=== PATIENT | male | born 1960 | race Caucasian/White ===

== ENCOUNTER 2017-08-26 17:45 | Inpatient (IN) ==
--- NOTE | 2017-08-26 17:53 | Emergency Department Note ---
Disposition Clinical Impression: Right kidney mass, Bladder wall thickening Acute renal failure Qualifiers: Acute renal failure type: unspecified Qualified Code(s): N17.9 - Acute kidney failure, unspecified Disposition: Admitted As Inpatient Condition: Fair Forms: ED Satisfaction Letter, Work/School Release Time of Disposition: 18:02 Abdominal Pain HPI - General Chief Complaint: ED Abdominal Pain Stated Complaint: ABD PAIN Time Seen by Provider: 08/26/17 17:50 Source: patient, EMS Mode of arrival: EMS Limitations: no limitations Nursing Notes Reviewed: Yes Vital Signs Reviewed: Yes - History of Present Illness HPI Narrative: 57-year-old with a history of colon cancer resected back in 2009 with a takedown of colostomy after that who comes in after having nausea for 3 days not able to eat or drink any solid foods for the last 4 days. Patient was dizzy when he stood up went to the [facility] had labs done and was found to be in acute renal failure with a creatinine of 4.[address] scan done that shows bladder wall thickening rule out transitional cell carcinoma of the bladder and a mass inferior pole of the right kidney there is a 17 mm x 16 mm x 8 mm exophytic mass. This measures been 70 and 80 Hounsfield units and could be a cystic or solid there is nonspecific bladder wall thickening. Pt Subjective Complaint: abdominal pain Onset (ago): day(s) (3) Consistency: constant Location: diffuse Pain Severity: mild, moderate Radiation: none Migration to: no migration Improves with: nothing Worsens with: nothing Associated symptoms: Reports: nausea, vomiting Treatments prior to arrival: none - Related Data Allergies Allergy/AdvReac Type Severity Reaction Status Date / Time No Known Allergies Allergy Verified 08/26/17 17:52 All systems ED: reviewed and negative except as stated. Constitutional: Denies: fever, chills, weakness, weight change Eyes: Denies: eye pain, eye discharge, vision change ENT ED: Denies: ear pain, throat pain, dental pain, hearing loss, epistaxis, congestion, dysphagia Cardiovascular: Denies: chest pain, palpitations, dyspnea on exertion, edema, syncope Respiratory: Denies: cough, dyspnea, wheezes, hemoptysis, stridor Gastrointestinal: Reports: abdominal pain, nausea, vomiting. Denies: diarrhea, constipation, hematemesis, melena, hematochezia Genitourinary: Denies: urgency, dysuria, frequency, hematuria Musculoskeletal: Denies: back pain, neck pain, arthralgia, myalgia Integumentary: Denies: rash, abrasion, lesions Neurological: Denies: headache, weakness, numbness, paresthesias, confusion, abnormal gait, vertigo Psychiatric: Denies: anxiety, depression, suicidal thoughts, homicidal thoughts , auditory hallucinations, visual hallucinations Endocrine: Denies: fatigue Hematological/Lymphatic: Denies: easy bleeding, easy bruising Allergic/Immunologic: Denies: facial swelling, urticaria Physical Exam - General Limitations: no limitations General appearance: alert, in no apparent distress - Head Head exam: atraumatic, normocephalic, normal inspection - Eye Eye exam: Present: normal appearance, PERRL, EOMI - ENT ENT exam: normal exam, normal oropharynx, mucous membranes moist - Neck Neck exam: Present: normal inspection, full ROM, trachea midline - Chest Chest inspection: Present: normal inspection, symmetric chest wall rise - Respiratory Respiratory exam: Present: normal lung sounds bilaterally - Cardiovascular Cardiovascular exam: Present: regular rate, normal rhythm, normal heart sounds - Abdominal Exam Abdominal exam: Present: soft, tenderness. Absent: guarding, rebound Abdominal tenderness: Present: diffuse, mild - Extremities Exam Extremities exam: Present: normal inspection, full ROM. Absent: tenderness, pedal edema - Expanded Lower Extremity Exam Neurovascular/Tendon exam: Present: normal capillary refill Gait: observed and normal - Back Exam Back exam: Present: normal inspection, full ROM. Absent: tenderness - Neurological Exam Neurological exam: Present: alert, oriented X3 - Psychiatric Psychiatric exam: Present: normal affect, normal mood - Skin Skin exam: Present: warm, dry, intact, normal color Course - Reevaluation(s) Reevaluation #1: 57-year-old [facility] patient sent here because of unable leave last 3 days with nausea and dry heaves he has had some dizziness when he stands up. Laboratory from the [facility] white count was 14.6 H&H of 16 6 and 48.4 platelets were 174 AST was 17 a LT 39 total bilirubin was 1 was 8.6, AST of 17 LT 39 total bilirubin 1 calcium 8.6 sodium 134 potassium 4.6 chloride 100 carbon dioxide 22 glucose 193 by mouth 17 creatinine 4.97 lipase 280 amylase 35. Patient will be admitted for IV fluids and also evaluation of kidney mass. Time: 17:54 - Consultations Consultation #1: Discussed with Dr. Sofia, admit. Time: 18:10 Vital Signs Temperature 97.9 F 08/26/17 17:47 Pulse Rate 106 08/26/17 17:47 Respiratory Rate 16 08/26/17 17:47 Blood Pressure 111/69 08/26/17 17:47 O2 Sat by Pulse Oximetry 98 08/26/17 17:47 Temperature 97.9 F 08/26/17 17:47 Pulse Rate 106 08/26/17 17:47 Respiratory Rate 16 08/26/17 17:47 Blood Pressure 111/69 08/26/17 17:47 O2 Sat by Pulse Oximetry 98 08/26/17 17:47 Oxygen Delivery Oxygen Delivery Room Air
[2017-08-26] MEDS: 0.9 % Sodium Chloride 1,000 ML IVC SCH ×2 (18:22→23:31)
--- NOTE | 2017-08-26 20:56 | Internal Med History&Physical ---
Date of Encounter: 08/26/17 Time of Encounter: 18:00 Assessment and Plan (1) Acute renal failure Current visit: Yes Status: Acute -[facility] 4.87 with a GFR 12. -Will continue IV fluids and consult nephrology for further recommendations ( plate keeper to be contacted in the morning) Qualifiers: Acute renal failure type: unspecified Qualified Code(s): N17.9 - Acute kidney failure, unspecified (2) Bladder wall thickening Current visit: Yes Status: Acute -CT of the abdomen was done which showed bladder wall thickening -Concerns for transitional cell carcinoma of the bladder -Will consult urology for further recommendations (urologist to be contacted in the morning) (3) Right kidney mass Current visit: Yes Status: Acute -CT of the abdomen was done which showed bladder wall thickening and a mass inferior pole of right kidney measuring 17 mm x 16 mm x 8 mm. -Urology consult as above appreciate recommendations (4) DVT prophylaxis Current visit: Yes Status: Acute Lovenox subcutaneous Internal Medicine - H&P: HPI Chief complaint: Nausea/vomiting Admitted From: Home Plans for Post Hospital Care: Home History of present illness: Patient is a 57-year-old male who presents from the [facility] due to acute renal failure. Patient reports of nausea/vomiting and dizziness with standing in addition to decreased by mouth for the last several days. Patient denies any abdominal pain , urinary symptoms or hematuria. Patient decided to go to the [facility] for further evaluation. At the [facility] patient was found to have a creatinine of 4.87 with a GFR 12. CT of the abdomen was done which showed bladder wall thickening and a mass inferior pole of right kidney measuring 17 mm x 16 mm x 8 mm. Patient was transferred to [facility] for further management and workup. Past Med Surg Social Fam HX - Past Medical History Medical history: cancer, diabetes, hypertension, other Psychiatric history: depression - Past Surgical History Surgical History: non-contributory - Social History Smoking Status: Former smoker Smokeless Tobacco Status: No Alcohol use: none Drug use: none - Family History Father Living Status: Hx Family Cancer: Yes Internal Medicine - H&P: Meds 3 Allergy/AdvReac Type Severity Reaction Status Date / Time No Known Allergies Allergy Verified 08/26/17 17:52 All Systems PM: A 10-system review of systems was performed and is negative for pertinent findings except as documented above in the HPI. - Constitutional Vitals: Temp Pulse Resp BP Pulse Ox 97.9 F 87 16 106/68 97 08/26/17 17:47 08/26/17 19:20 08/26/17 19:20 08/26/17 19:20 08/26/17 19:20 General appearance: Present: A&O X 3 - Eye Eye exam: Present: normal appearance - ENT ENT exam: Present: mucous membranes moist - Respiratory Respiratory exam: Present: CTAB. Absent: accessory muscle use, rales, rhonchi, wheezes - Cardiovascular Cardiovascular exam: Present: RRR, +S1, +S2. Absent: diastolic murmur, gallop, rubs, systolic murmur - GI/Abdominal GI/Abdominal exam: Present: normal bowel sounds, soft, no peritoneal signs. Absent: distended, tenderness - Extremities Exam Extremities exam: Absent: pedal edema - Neurological Exam Neurological exam: Present: oriented X3 - Psychiatric Psychiatric exam: Present: normal mood - Skin Skin exam: Present: normal color
[2017-08-26] MEDS ORDERED: Naloxone 0.4 MG/ML INJ IVP PRN (21:04)
[2017-08-27 05:46] LABS: Basophils % 0.2 %; Eosinophils # 0.1 K/mcL (0.0-0.6); Eosinophils % 0.8 %; Hematocrit 37.4 % (37.5-50.1); Immature Granulocytes % 0.8 % (0-4); Lymphocytes # 2.6 K/mcL (0.6-4.6); Lymphocytes % 28.2 %; Mean Corpuscular HGB Conc 34.8 g/dL (31.6-35.5); Mean Corpuscular Hemoglobin 29.5 pg (28.0-33.3); Monocytes # 0.9 K/mcL (0.0-1.3); Monocytes % 9.8 %; Neutrophils # 5.6 K/mcL (1.6-8.9); Platelet Count 104 K/mcL (140-400); Red Cell Distribution Width 16.9 % (11.5-14.5); Segmented Neutrophils % 60.2 %
[2017-08-27 06:49] LABS: Calcium 7.4 mg/dL (8.6-10.3)
[2017-08-27] MEDS: 0.9 % Sodium Chloride 1,000 ML IVC SCH ×2 (08:00→17:08)
--- NOTE | 2017-08-27 09:20 | Urology - Consult Note ---
Date of Encounter: 08/27/17 Time of Encounter: 09:19 - Assessment and Plan (1) Acute renal failure Current Visit: Yes Status: Acute Assessment and plan: does not appear to be obstructive bc the bladder is not distended and there is no hydronephrosis. likely prerenal or intrinsic RI Qualifiers: Acute renal failure type: unspecified Qualified Code(s): N17.9 - Acute kidney failure, unspecified (2) Bladder wall thickening Current Visit: Yes Status: Acute Assessment and plan: I reviewed the CT images. the bladder wall thickening is fairly symmetric, nonspecific and is more consistant with outlet obstruction or bladder dysfunction rather than urothelial malignancy. may require outpatient office cystoscopy in the future but does not need to be done urgently. (3) Right kidney mass Current Visit: Yes Status: Acute Assessment and plan: I reviewed the CT scan and the patient has 3 renal lesions. 2 cm hyperdense lesion in the right mid pole. large lower pole renal cyst with some calcification. more simple appearing cyst in the left kidney. unable to determine if renal cell carcinoma without IV contrast imaging. the lesion mentioned in the right kidney may be a hyperdense cyst without malignancy. Again repeat imaging with contrast can be performed in the future as an outpatient if/when his renal function improves. Urology CN:HPI Consult date: 08/27/17 History of present illness: Patient is a 57-year-old male who presents from the [facility] due to acute renal failure. Patient reports of nausea/vomiting and dizziness with standing in addition to decreased by mouth for the last several days. Patient denies any abdominal pain , urinary symptoms or gross hematuria. Patient decided to go to the [facility] for further evaluation. At the [facility] patient was found to have a creatinine of 4.87 with a GFR 12. CT of the abdomen/pelvis with bladder wall thickening and a mass inferior pole of right kidney measuring 17 mm x 16 mm x 8 mm. since admission GFR has improved with hydration to 27. Past Med Surg Social Fam HX - Past Medical History Medical history: cancer, diabetes, hypertension, other Psychiatric history: depression - Past Surgical History Surgical History: non-contributory - Social History Smoking Status: Former smoker Smokeless Tobacco Status: No Alcohol use: none Drug use: none - Family History Father Living Status: Hx Family Cancer: Yes Medications and Allergies Albuterol Sulfate [Albuterol Inhaler] 2 puff IH QID PRN 08/26/17 [History] Cholecalciferol (D-3) [Vitamin D] 2,000 unit PO DAILY 08/26/17 [History] Folic Acid [Folic Acid] 1 mg PO DAILY 08/26/17 [History] Gabapentin [Neurontin] 300 mg PO TID 08/26/17 [History] Lisinopril [Zestril] 10 mg PO DAILY 08/26/17 [History] Mirtazapine [Remeron] 30 mg PO HS 08/26/17 [History] Omeprazole [PriLOSEC] 40 mg PO DAILY 08/26/17 [History] Ondansetron HCl [Zofran] 4 mg PO Q4-6H PRN 08/26/17 [History] Sildenafil Citrate [Viagra] 100 mg PO AD PRN 08/26/17 [History] Trospium Chloride 20 mg PO DAILY 08/26/17 [History] metFORMIN [Glucophage] 500 mg PO BIDWM 08/26/17 [History] predniSONE [PredniSONE] 20 mg PO DAILY 08/26/17 [History] 3 Allergy/AdvReac Type Severity Reaction Status Date / Time No Known Allergies Allergy Verified 08/26/17 17:52 Review of Systems - Constitutional fatigue, no fever(s), no malaise - EENT Nose, mouth and throat: dizziness - Cardiovascular no chest pain - Respiratory no dyspnea - Gastrointestinal nausea, vomiting - Genitourinary no difficulty urinating, no hematuria - Musculoskeletal no back pain - Integumentary no erythema - Neurological no confusion - Psychiatric no anxiety - Hematologic/Lymphatic no easy bleeding Exam Initial Vital Signs Temp Pulse Resp BP Pulse Ox 97.9 F 106 16 111/69 98 08/26/17 17:47 08/26/17 17:47 08/26/17 17:47 08/26/17 17:47 08/26/17 17:47 - General physical appearance Present: well developed, no distress - Eyes Present: PERRL, conjunctiva is clear - ENT Present: normal nares, no hearing loss - Neck Present: no masses, no lymphadenopathy - Respiratory Present: normal respiratory effort - Cardiovascular Cardiovascular exam IM: RRR - Abdomen Abdomen: Present: soft. Absent: masses, suprapubic tenderness - Integumentary Present: no rash, no abnormal pigmentation - Neurologic Present: normal coordination. Absent: disoriented, confused Urology Results - Labs 08/27/17 04:55 08/27/17 04:55 Abnormal lab results Hct 37.4 % (37.5-50.1) L 08/27/17 04:55 RDW 16.9 % (11.5-14.5) H 08/27/17 04:55 Plt Count 104 K/mcL (140-400) L 08/27/17 04:55 Sodium 132 mEq/L (136-145) L 08/27/17 04:55 Carbon Dioxide 18 mEq/L (23-29) L 08/27/17 04:55 BUN 65 mg/dL (6-20) H 08/27/17 04:55 Creatinine 2.52 mg/dL (0.70-1.30) H 08/27/17 04:55 Est GFR ( Amer) 32 (> 60) L 08/27/17 04:55 Est GFR (Non-Af Amer) 27 (> 60) L 08/27/17 04:55 Glucose 118 mg/dL (70-105) H 08/27/17 04:55 Calcium 7.4 mg/dL (8.6-10.3) L 08/27/17 04:55 Diabetes panel 08/27/17 Range/Units 04:55 Sodium 132 L (136-145) mEq/L Potassium 4.0 (3.5-5.1) mEq/L Chloride 107 (98-107) mEq/L Carbon Dioxide 18 L (23-29) mEq/L BUN 65 H (6-20) mg/dL Creatinine 2.52 H (0.70-1.30) mg/dL Glucose 118 H (70-105) mg/dL Calcium 7.4 L (8.6-10.3) mg/dL Calcium panel 08/27/17 Range/Units 04:55 Calcium 7.4 L (8.6-10.3) mg/dL Pituitary panel 08/27/17 Range/Units 04:55 Sodium 132 L (136-145) mEq/L Potassium 4.0 (3.5-5.1) mEq/L Chloride 107 (98-107) mEq/L Carbon Dioxide 18 L (23-29) mEq/L BUN 65 H (6-20) mg/dL Creatinine 2.52 H (0.70-1.30) mg/dL Glucose 118 H (70-105) mg/dL Calcium 7.4 L (8.6-10.3) mg/dL Adrenal panel 08/27/17 Range/Units 04:55 Sodium 132 L (136-145) mEq/L Potassium 4.0 (3.5-5.1) mEq/L Chloride 107 (98-107) mEq/L Carbon Dioxide 18 L (23-29) mEq/L BUN 65 H (6-20) mg/dL Creatinine 2.52 H (0.70-1.30) mg/dL Glucose 118 H (70-105) mg/dL Calcium 7.4 L (8.6-10.3) mg/dL All other labs normal. Consult Discharge Plan - Plan [facility]errals: [facility] [Primary Care Provider] -
--- NOTE | 2017-08-27 12:51 | Internal Med Progress Note ---
Date of Encounter: 08/27/17 Time of Encounter: 12:49 - Assessment and plan (1) Acute renal failure Current Visit: Yes Status: Acute Assessment and plan: This seems to be improving with IV fluids. Likely prerenal. Patient reports decreased oral intake for the last week or so. Also has chronic diarrhea. We will obtain records from [facility]. Continue IV fluid. Check a UA. Qualifiers: Acute renal failure type: unspecified Qualified Code(s): N17.9 - Acute kidney failure, unspecified (2) Diarrhea Current Visit: Yes Status: Acute Assessment and plan: This is chronic diarrhea. He says this changing color to green now. He was recently hospitalized and given IV antibiotics for sepsis and ICU of [facility]. We will check C. difficile. Qualifiers: Diarrhea type: unspecified type Qualified Code(s): R19.7 - Diarrhea, unspecified (3) Right kidney mass Current Visit: Yes Status: Acute Assessment and plan: Seen by urology with plans to repeat a CT after kidney function is better with IV contrast. (4) Bladder wall thickening Current Visit: Yes Status: Acute (5) Hypertension Current Visit: Yes Status: Acute Assessment and plan: Blood pressures on the lower side. Hold antihypertensives. Qualifiers: Hypertension type: essential hypertension Qualified Code(s): I10 - Essential (primary) hypertension (6) Hemolytic anemia Current Visit: Yes Status: Acute Assessment and plan: Patient is on chronic prednisone 20 mg. Qualifiers: Hemolytic anemia type: hereditary hemolytic anemia, unspecified Qualified Code(s): D58.9 - Hereditary hemolytic anemia, unspecified (7) DVT prophylaxis Current Visit: Yes Status: Acute Assessment and plan: SCDs - Subjective Interval history: Patient was seen and examined. No acute events. [facility]. Has no history of kidney disease. The patient was recently hospitalized in the ICU at [facility] according to the family and was treated for sepsis. He is not able to tell me exactly what he was being treated for. He does have symptoms of nausea and has not been having an appetite and has had decreased oral intake for the last week or so. Also has been dealing with loose stools although he does have loose stools that are chronic ever since he had a colectomy after diagnosis of colon cancer. He says the stools have been greenish now compared to her regular brown color. He has been afebrile. - Constitutional Vitals: Temp Pulse Resp BP Pulse Ox 98.7 F 77 16 120/80 96 08/27/17 11:21 08/27/17 11:21 08/27/17 11:21 08/27/17 11:21 08/27/17 11:21 General appearance: Present: A&O X 3 Exam: GEN: NAD CVS: RRR. S1, S2, No m/r/g RESP: CTAB ABD: Soft, NT, ND, +BS EXT: No edema. 2+ DP. No rashes NEURO: Nonfocal Internal Medicine: Result - Labs CBC & Chem 7: 08/27/17 04:55 08/27/17 04:55 Labs: Short CBC 08/27/17 Range/Units 04:55 WBC 9.3 (4.3-11.1) K/mcL Hgb 13.0 (12.9-16.9) g/dL Hct 37.4 L (37.5-50.1) % Plt Count 104 L (140-400) K/mcL Neutrophils # 5.6 (1.6-8.9) K/mcL BMP 08/27/17 04:55 Sodium 132 L Potassium 4.0 Chloride 107 Carbon Dioxide 18 L BUN 65 H Creatinine 2.52 H Glucose 118 H Calcium 7.4 L Consult Discharge Plan - Plan [facility]errals: [facility] [Primary Care Provider] -
[2017-08-27] MEDS: Gabapentin 300 MG CAPSULE PO SCH ×2 (13:49→20:24)
[2017-08-27] MEDS: predniSONE 20 MG TABLET PO SCH (13:49)
--- NOTE | 2017-08-27 13:51 | Nephrology Consult Note ---
Date of Encounter: 08/28/17 Time of Encounter: 14:00 Assessment and Plan (1) Acute renal failure Current Visit: Yes Status: Acute Elevated SCr in the setting of N but no V but decreased po inate with likely orthostatic hypotension Agree with continued volume repletion will check urine studies with UA, sodium, eosinophils and creatinine Will also check CPK and uric acid levels Encourage avoidance of nephroixns if possible No acute indication for ASSISTANT DIRECTOR OF SECURITY at this time Qualifiers: Acute renal failure type: unspecified Qualified Code(s): N17.9 - Acute kidney failure, unspecified (2) Right kidney mass Current Visit: Yes Status: Acute As noted by urology, would need better imaging once renal fxn improves whether MRI or CT with contrast History of Present Illness - Reason for Consult Consult date: 08/27/17 Acute Kidney Injury Requesting physician: Xiang Sofia - History of Present Illness 57 y o male with PMH of DM, HTM [facility] presented for several days of nauseabut no vomiting with resultant dizziness with decreased po intake. SCr was noted at 4.87, GFR 12 improving to 2.52, GFR 27 today with baseline not given. Incidentally, CT without contrast showed right renal lesions along with left simple cysts unclear if malignant along with thickened bladder wall. Urology consulted and following. Denies any NSAIDs use or any new medications. No prior history of renal disease Past Med Surg Social Fam HX - Past Medical History Medical history: cancer, diabetes, hypertension, other Psychiatric history: depression - Past Surgical History Surgical History: non-contributory - Social History Smoking Status: Former smoker Smokeless Tobacco Status: No Alcohol use: none Drug use: none - Family History Father Living Status: Hx Family Cancer: Yes Medications and Allergies Albuterol Sulfate [Albuterol Inhaler] 2 puff IH QID PRN 08/26/17 [History] Cholecalciferol (D-3) [Vitamin D] 2,000 unit PO DAILY 08/26/17 [History] Folic Acid 1 mg PO DAILY 08/26/17 [History] Gabapentin [Neurontin] 300 mg PO TID 08/26/17 [History] Mirtazapine [Remeron] 30 mg PO HS 08/26/17 [History] Omeprazole [PriLOSEC] 40 mg PO DAILY 08/26/17 [History] Ondansetron HCl [Zofran] 4 mg PO Q4-6H PRN 08/26/17 [History] Sildenafil Citrate [Viagra] 100 mg PO AD PRN 08/26/17 [History] Trospium Chloride 20 mg PO DAILY 08/26/17 [History] metFORMIN [Glucophage] 500 mg PO BIDWM 08/26/17 [History] predniSONE [PredniSONE] 20 mg PO DAILY 08/26/17 [History] 3 Allergy/AdvReac Type Severity Reaction Status Date / Time No Known Allergies Allergy Verified 08/26/17 17:52 Review of Systems All Systems: reviewed and no additional remarkable complaints except as stated ( 10 systems reviewed) Exam - Vital Signs Vital signs: Initial Vital Signs Temp Pulse Resp BP Pulse Ox 97.9 F 106 16 111/69 98 08/26/17 17:47 08/26/17 17:47 08/26/17 17:47 08/26/17 17:47 08/26/17 17:47 Vital Signs - Last 8 Hours Temp Pulse Resp BP Pulse Ox 08/27/17 11:21 98.7 F 77 16 120/80 96 08/27/17 07:07 97.7 F 100 18 126/77 98 Intake and Output 08/26/17 08/27/17 08/27/17 23:59 07:59 15:59 Intake Total 0 / 0 1000 / 1000 480 / 480 Balance 0 / 0 1000 / 1000 480 / 480 Intake: IV Fluids 0 / 0 1000 / 1000 0.9 % Sodium Chloride 1,000 ML 0 / 0 1000 / 1000 @ 125 mls/hr IVC .Q8H [facility] Rx#: [id number] Oral 480 / 480 Other: Meal Lunch Percent of Meal Consumed 100% # Voids 1 1 # Bowel Movements 1 # Bowel Movement Diapers 1 Weight 104.2 kg Blood Glucose* 135 132 Patient Weight 08/27/17 23:59 Weight 104.2 kg - General Appearance General appearance: well-developed, well-nourished EENT: ATNC, mucous membranes dry Neck: no JVD, supple Respiratory: clear (ant bilat) Cardiology: no edema, normal S1, normal S2 Gastrointestinal: no tenderness, no guarding Integumentary: warm and dry Neurologic: no focal deficit Musculoskeletal: no deformities Psychiatric: mood/affect appropriate Results - Lab Results 08/28/17 05:18 08/28/17 05:18 Most recent lab results Calcium 7.4 mg/dL (8.6-10.3) L 08/27/17 04:55 Consult Discharge Plan - Plan Additional Instructions: We are holding your lisinopril at discharge. Your blood pressure has been ok without it. Please see your PCP next week to see if you need to go back on it or if you need another blood pressure medication. Follow up with Urology within the next month in regards to the kidney mass and getting a CT scan or MRI with contrast to evaluate the mass better. [facility]errals: [facility] [Primary Care Provider] - Rosales Martin MD [Partnered Physician] - (2-4 weeks)
[2017-08-27 15:46] LABS: Bilirubin,Urine Negative (Negative); Blood,Urine Negative (Negative); Clarity,Urine Clear (Clear); Color,Urine Yellow (Yellow); Glucose,Urine (UA) Normal (Normal); Ketones,Urine Negative (Negative); Leukocyte Esterase,Urine Negative (Negative); Nitrite,Urine Negative (Negative); Protein,Urine Negative (Neg-Trace); Specific Gravity,Urine 1.016 (1.010-1.025); Urobilinogen,Urine Normal (Normal)
[2017-08-27 16:23] LABS: Sodium, Urine 12.2 mEq/L
[2017-08-27] MEDS ORDERED: Mirtazapine 15 MG TABLET PO SCH (21:00)
[2017-08-28] MEDS: 0.9 % Sodium Chloride 1,000 ML IVC SCH (01:30)
[2017-08-28 05:39] LABS: Basophils % 0.2 %; Mean Platelet Volume 10.2 fL (9.4-12.4); Monocytes % 6.8 %; Red Cell Distribution Width 15.9 % (11.5-14.5)
[2017-08-28 05:41] LABS: Eosinophils % 0.2 %; Hematocrit 31.7 % (37.5-50.1); Hemoglobin 10.9 g/dL (12.9-16.9); Immature Granulocytes % 0.6 % (0-4); Immature Platelets 3.3 % (1.1-6.1); Lymphocytes % 21.1 %; Mean Corpuscular HGB Conc 34.4 g/dL (31.6-35.5); Mean Corpuscular Hemoglobin 29.4 pg (28.0-33.3); Mean Corpuscular Volume 85.4 fL (83.0-100.0); Monocytes # 0.3 K/mcL (0.0-1.3); Neutrophils # 3.5 K/mcL (1.6-8.9); Red Blood Count 3.71 M/mcL (4.19-5.50); Segmented Neutrophils % 71.1 %
[2017-08-28 05:48] LABS: Platelet Count 80 K/mcL (140-400)
[2017-08-28 05:59] LABS: BUN/Creatinine Ratio 27 (6-26); Blood Urea Nitrogen 29 mg/dL (6-20); Calcium 7.5 mg/dL (8.6-10.3); Carbon Dioxide 23 mEq/L (23-29); Chloride 110 mEq/L (98-107); Glucose 138 mg/dL (70-105); Magnesium 2.2 mg/dL (1.6-2.6); Osmolality,Calculated 292 (280-300); Potassium 4.4 mEq/L (3.5-5.1); Sodium 137 mEq/L (136-145); eGFR For African Americans > 60 (> 60); eGFR For Non-African Americans > 60 (> 60)
[2017-08-28 07:30] VITALS: BP 124/79
[2017-08-28] MEDS ORDERED: Folic Acid 1 MG TABLET PO SCH (09:00)
[2017-08-28] MEDS ORDERED: Cholecalciferol (D-3) 1,000 UNIT TABLET PO SCH (09:00)
[2017-08-28] MEDS: Gabapentin 300 MG CAPSULE PO SCH (09:13)
[2017-08-28] MEDS: predniSONE 20 MG TABLET PO SCH (09:13)
--- NOTE | 2017-08-28 10:06 | Discharge Summary ---
- NOTES TO OUTPATIENT PROVIDER Notes to Outpatient Provider: We held the patient's lisinopril at discharge as his blood pressure been normal without it. I advised him to see his primary care next week in order to see what his blood pressure is like and if he needed to be on lisinopril again or a different agent. Date of Encounter: 08/28/17 Time of Encounter: 10:04 - Discharge Diagnosis (1) Acute renal failure Priority: Primary Status: Acute Qualifiers: Acute renal failure type: unspecified Qualified Code(s): N17.9 - Acute kidney failure, unspecified (2) Diarrhea Priority: Primary Status: Acute Qualifiers: Diarrhea type: unspecified type Qualified Code(s): R19.7 - Diarrhea, unspecified (3) Right kidney mass Priority: Primary Status: Acute (4) Bladder wall thickening Priority: Primary Status: Acute (5) Hypertension Priority: Secondary Status: Acute Qualifiers: Hypertension type: essential hypertension Qualified Code(s): I10 - Essential (primary) hypertension (6) Hemolytic anemia Priority: Secondary Status: Acute Qualifiers: Hemolytic anemia type: hereditary hemolytic anemia, unspecified Qualified Code(s): D58.9 - Hereditary hemolytic anemia, unspecified Hospital course: Mr. Gutierrez is a 57 year old male who presented from the [place] due to acute renal failure. The patient has a history of colon cancer status post colectomy, diabetes, hypertension, hemolytic anemia for which she is on prednisone. The patient reported nausea/vomiting and dizziness for the last several days. 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 At the [facility] patient was found to have a creatinine of 4.87 with a GFR 12. CT of the abdomen was done which showed bladder wall thickening and a mass inferior pole of right kidney measuring 17 mm x 16 mm x 8 mm. there was also bilateral nonobstructing calculi. Patient was transferred to [facility] for further management and workup. He was admitted under the hospitalist service with a consult to urology. Nephrology was also following. They recommended IV hydration. His kidney function normalized. Regarding his renal mass/cysts, urology will be seeing the patient as an outpatient and they will be obtaining a CT/MRI with contrast to better visualize the kidneys. I stopped the patient lisinopril due to his kidney function and due to the fact that his blood pressure remained in the 120s systolically while he is here without having being on any blood pressure medications. The patient was discharged on 08/28 with follow-up with primary care physician as well as urology. - Time Spent with Patient Total time spent providing and/or coordinating discharge services: Greater than 30 minutes - Discharge Medications Home Medications: Albuterol Sulfate [Albuterol Inhaler] 2 puff IH QID PRN 08/26/17 [History] Cholecalciferol (D-3) [Vitamin D] 2,000 unit PO DAILY 08/26/17 [History] Folic Acid 1 mg PO DAILY 08/26/17 [History] Gabapentin [Neurontin] 300 mg PO TID 08/26/17 [History] Mirtazapine [Remeron] 30 mg PO HS 08/26/17 [History] Omeprazole [PriLOSEC] 40 mg PO DAILY 08/26/17 [History] Ondansetron HCl [Zofran] 4 mg PO Q4-6H PRN 08/26/17 [History] Sildenafil Citrate [Viagra] 100 mg PO AD PRN 08/26/17 [History] Trospium Chloride 20 mg PO DAILY 08/26/17 [History] metFORMIN [Glucophage] 500 mg PO BIDWM 08/26/17 [History] predniSONE [PredniSONE] 20 mg PO DAILY 08/26/17 [History] Allergies/Adverse Reactions: 3 Allergy/AdvReac Type Severity Reaction Status Date / Time No Known Allergies Allergy Verified 08/26/17 17:52 Date of admission: 08/26/17 21:04 Primary care physician: PCP [facility] Consults: 08/26/17 21:07 Consult to Urology [CONS] Routine Consulting Provider: U[facility] [place] Reason for Consult: Renal mass and bladder wall thickening concerns for renal carcinoma and/or transitional cell carcinoma of bladder Call Completed: No 08/26/17 21:08 Consult to Nephrology [CONS] Routine Consulting Provider: [facility] Karina/MIKAL/AIRAM/EM Reason for Consult: Acute renal failure Call Completed: No - Constitutional Vitals: Temp Pulse Resp BP Pulse Ox 97.7 F 80 17 124/79 100 08/28/17 07:24 08/28/17 07:24 08/28/17 07:24 08/28/17 07:24 08/28/17 07:24 General appearance: Present: A&O X 3 Exam: GEN: NAD CVS: RRR. S1, S2, No m/r/g RESP: CTAB ABD: Soft, NT, ND, +BS EXT: No edema. 2+ DP. No rashes NEURO: Nonfocal - Patient Status Disposition: Home, Self-Care Condition: Fair Overall status at discharge: patient is progressing back to baseline - Discharge Instructions Follow [facility] With: [facility] [[facility] Care Provider[facility] - Rosales Martin MD [Partnered Physician] - (2-4 weeks) Additional Instructions: We are holding your lisinopril at discharge. Your blood pressure has been ok without it. Please see your PCP next week to see if you need to go back on it or if you need another blood pressure medication. Follow up with Urology within the next month in regards to the kidney mass and getting a CT scan or MRI with contrast to evaluate the mass better. - Diet and Activity Activity: increase activity as tolerated Diet: low salt diet, regular diet
--- NOTE | 2017-08-28 13:01 | Nephrology Progress Note ---
Date of Encounter: 08/28/17 Time of Encounter: 12:50 - Assessment and Plan (1) Acute renal failure Current Visit: Yes Status: Acute SCr normalized with IVf very suggestive of pre-renal state, now volume resuscitated Uric acid elevated and low urine sodium also confirming pre-renal state, should normalize with return to normal renal fxn CP WNL, urine eosinophil negative. UA bland agree with discharge and followup with urology regarding renal lesion Qualifiers: Acute renal failure type: unspecified Qualified Code(s): N17.9 - Acute kidney failure, unspecified (2) Right kidney mass Current Visit: Yes Status: Acute Imgaing in outpatient either MRI or CT with contrast renal mass protocol Subjective Interval history: Pt seen and examined feels better and is eager to go home for [facility] Objective - Vital Signs Vital signs: Vital Signs Temp Pulse Resp BP Pulse Ox 08/28/17 07:24 97.7 F 80 17 124/79 100 08/28/17 04:10 98.0 F 77 16 130/78 99 08/27/17 23:38 97.9 F 74 18 119/70 96 08/27/17 19:14 98.0 F 86 18 123/71 99 08/27/17 15:34 98.6 F 77 18 133/78 95 Intake and Output 08/27/17 08/28/17 08/28/17 23:59 07:59 15:59 Intake Total 1480 / 1480 1690 / 1690 1120 / 1120 Balance 1480 / 1480 1690 / 1690 1120 / 1120 Intake: IV Fluids 1000 / 1000 990 / 990 1000 / 1000 0.9 % Sodium Chloride 1,000 ML 1000 / 1000 990 / 990 1000 / 1000 @ 125 mls/hr IVC .Q8H [facility] [place] Rx#: [id number] Oral 480 / 480 700 / 700 120 / 120 Other: Meal Dinner Breakfast Percent of Meal Consumed 100% 100% Stool Size Small # Voids 1 # Bowel Movements 1 Blood Glucose* 191 125 - General Appearance General appearance: Present: well-developed, well-nourished EENT: Present: ATNC, mucous membranes moist Neck: Present: no JVD, supple Respiratory: Present: clear Cardiology: Present: no edema, normal S1, normal S2 Gastrointestinal: Present: no tenderness, no guarding Integumentary: Present: warm and dry Neurologic: Present: no focal deficit Musculoskeletal: Present: no deformities Psychiatric: Present: mood/affect appropriate - Lab 08/28/17 05:18 08/28/17 05:18 Most recent lab results Calcium 7.5 mg/dL (8.6-10.3) L 08/28/17 05:18 Magnesium 2.2 mg/dL (1.6-2.6) 08/28/17 05:18 Urine Creatinine 92 mg/dL 08/27/17 13:54 Urine Sodium 12.2 mEq/L 08/27/17 13:54 Consult Discharge Plan - Plan Additional Instructions: We are holding your lisinopril at discharge. Your blood pressure has been ok without it. Please see your PCP next week to see if you need to go back on it or if you need another blood pressure medication. Follow up with Urology within the next month in regards to the kidney mass and getting a CT scan or MRI with contrast to evaluate the mass better. Referrals: [facility] [Primary Care Provider] - Rosales Martin MD [Partnered Physician] - (2-4 weeks)
== END 2017-08-28 13:09 | disposition home or self-care (01) | DRG 683 ==
LOC: EMEROO 17:45 → 2ANU 17:45
PROVIDERS: ADMIT Hospitalist; ATTEND Internal Medicine

== ENCOUNTER 2020-07-19 16:49 | Inpatient (IN) ==
[2020-07-19] MEDS ORDERED: Albuterol 2.5 MG/3 ML NEBULIZER IH ONE (17:25)
[2020-07-19 17:46] LABS: Basophils % 0.1 %; Hematocrit 38.2 % (37.5-50.1); Hemoglobin 12.7 g/dL (12.9-16.9); Immature Granulocytes % 0.4 % (0-4); Lymphocytes # 1.1 K/mcL (0.6-4.6); Lymphocytes % 13.9 %; Mean Corpuscular HGB Conc 33.2 g/dL (31.6-35.5); Mean Corpuscular Hemoglobin 29.7 pg (28.0-33.3); Mean Corpuscular Volume 89.3 fL (83.0-100.0); Mean Platelet Volume 11.2 fL (9.4-12.4); Monocytes # 0.5 K/mcL (0.0-1.3); Monocytes % 6.2 %; Platelet Count 207 K/mcL (140-400); Red Blood Count 4.28 M/mcL (4.19-5.50); Red Cell Distribution Width 16.6 % (11.5-14.5); Segmented Neutrophils % 79.4 %; White Blood Count 7.5 K/mcL (4.3-11.1)
[2020-07-19 18:02] LABS: INR 1.3; Prothrombin Time 14.5 Seconds (9.4-12.1)
[2020-07-19 18:03] LABS: Activated Partial Thrombo Time 32.5 Seconds (26.0-36.0)
[2020-07-19] MEDS ORDERED: cefTRIAXone 1,000 MG in Water for inj. (sterile) 10 ML IVP ONE (18:08)
[2020-07-19] MEDS ORDERED: Azithromycin 500 MG in 0.9 % Sodium Chloride 250 ML IVPB ONE (18:08)
[2020-07-19 18:20] LABS: Fibrinogen > 1000 mg/dL (169-393)
[2020-07-19 19:07] LABS: Alanine Aminotransferase 15 Units/L (7-52); Albumin 3.7 g/dL (3.5-5.7); Albumin/Globulin Ratio 1.4 (1.1-2.2); Alkaline Phosphatase 45 Units/L (34-104); Aspartate Amino Transferase 14 Units/L (13-39); Bilirubin,Direct 0.2 mg/dL (0.0-0.2); Bilirubin,Indirect 0.3 mg/dL (0.0-1.0); Bilirubin,Total 0.5 mg/dL (0.3-1.0); Blood Urea Nitrogen > 130 mg/dL (8-23); C-Reactive Protein 118 mg/L (Less than 10); Calcium 8.7 mg/dL (8.6-10.3); Carbon Dioxide 14 mEq/L (23-29); Chloride 100 mEq/L (98-107); Globulin 2.7 g/dL (2.4-3.5); Glucose 129 mg/dL (70-105); Lactate Dehydrogenase 175 Units/L (140-271); Phosphorous 12.6 mg/dL (2.7-4.5); Potassium 7.2 mEq/L (3.5-5.1); Sodium 137 mEq/L (136-145); Total Protein 6.4 g/dL (6.4-8.9); eGFR For African Americans 4 (> 60); eGFR For Non-African Americans 3 (> 60)
[2020-07-19] MEDS ORDERED: Insulin Human Regular 10 UNIT in 0.9 % Sodium Chloride 10 ML IV ONE (19:07)
[2020-07-19] MEDS ORDERED: *HR* Dextrose 50 % in Water (Vial) 50 ML VIAL IVP ONE (19:07)
[2020-07-19] MEDS ORDERED: 0.9 % Sodium Chloride 1,000 ML IVC ONE (19:13)
[2020-07-19 19:21] LABS: Ferritin 709 ng/mL (20-250)
[2020-07-19] MEDS: Calcium Gluconate 1gm/50mL 1 GM/50 ML BAG IVPB SCH ×2 (20:20→21:33)
[2020-07-19] MEDS: Sodium Bicarbonate 75 MEQ in 0.45 % Sodium Chloride 1,000 ML IVC SCH (20:26)
[2020-07-19] MEDS ORDERED: Naloxone 0.4 MG/ML INJ IVP PRN (21:28)
[2020-07-19] MEDS ORDERED: Ondansetron 4 MG/2 ML VIAL IVP PRN (21:28)
[2020-07-19 23:05] LABS: Blood Urea Nitrogen > 130 mg/dL (8-23); Calcium 8.1 mg/dL (8.6-10.3); Carbon Dioxide 11 mEq/L (23-29); Chloride 102 mEq/L (98-107); Glucose 292 mg/dL (70-105); Sodium 137 mEq/L (136-145); eGFR For African Americans 4 (> 60); eGFR For Non-African Americans 3 (> 60)
[2020-07-20] MEDS ORDERED: Calcium Gluconate 1gm/50mL 1 GM/50 ML BAG IVPB ONE (01:52)
[2020-07-20] MEDS: Sodium Bicarbonate 75 MEQ in 0.45 % Sodium Chloride 1,000 ML IVC SCH ×2 (05:54→13:38)
[2020-07-20] MEDS ORDERED: 0.9 % Sodium Chloride 1,000 ML IVC ONE (06:21)
[2020-07-20] MEDS: Calcium Gluconate 1gm/50mL 1 GM/50 ML BAG IVPB SCH (06:27)
[2020-07-20 07:44] LABS: Alanine Aminotransferase 13 Units/L (7-52); Albumin 3.3 g/dL (3.5-5.7); Albumin/Globulin Ratio 1.4 (1.1-2.2); Alkaline Phosphatase 40 Units/L (34-104); Aspartate Amino Transferase 11 Units/L (13-39); Bilirubin,Total 0.2 mg/dL (0.3-1.0); Blood Urea Nitrogen > 130 mg/dL (8-23); Calcium 7.8 mg/dL (8.6-10.3); Carbon Dioxide 15 mEq/L (23-29); Chloride 105 mEq/L (98-107); Globulin 2.3 g/dL (2.4-3.5); Glucose 339 mg/dL (70-105); Magnesium 2.8 mg/dL (1.6-2.6); Phosphorous 10.2 mg/dL (2.7-4.5); Potassium 5.9 mEq/L (3.5-5.1); Sodium 139 mEq/L (136-145); Total Protein 5.6 g/dL (6.4-8.9); eGFR For African Americans 6 (> 60); eGFR For Non-African Americans 5 (> 60)
[2020-07-20 07:49] LABS: Immature Granulocytes % 0.6 % (0-4)
[2020-07-20 08:03] LABS: Basophils % 0.6 %; Hematocrit 33.1 % (37.5-50.1); Mean Platelet Volume 11.2 fL (9.4-12.4)
[2020-07-20 08:05] LABS: Hemoglobin 10.8 g/dL (12.9-16.9); Lymphocytes # 0.3 K/mcL (0.6-4.6); Lymphocytes % 18.4 %; Mean Corpuscular HGB Conc 32.6 g/dL (31.6-35.5); Mean Corpuscular Hemoglobin 29.3 pg (28.0-33.3); Mean Corpuscular Volume 89.7 fL (83.0-100.0); Monocytes # 0.1 K/mcL (0.0-1.3); Monocytes % 5.7 %; Neutrophils # 1.3 K/mcL (1.6-8.9); Platelet Count 129 K/mcL (140-400); Red Blood Count 3.69 M/mcL (4.19-5.50); Red Cell Distribution Width 16.4 % (11.5-14.5); Segmented Neutrophils % 74.7 %; White Blood Count 1.7 K/mcL (4.3-11.1)
[2020-07-20 08:55] LABS: Bacteria,Urine Few per hpf (None-Few); Bilirubin,Urine Negative (Negative); Blood,Urine Small (Negative); Clarity,Urine Turbid (Clear); Color,Urine Light-Yellow (Yellow); Glucose,Urine (UA) Normal (Normal); Hyaline Casts,Urine Few per lpf (None Seen); Ketones,Urine Negative (Negative); Leukocyte Esterase,Urine Negative (Negative); Mucus,Urine Few per lpf (None-Few); Nitrite,Urine Negative (Negative); PH,Urine 5.5 pH Units (5.0-8.0); Protein,Urine 30 mg/dL (Neg-Trace); RBC,Urine 0-3 per hpf (0-3); Specific Gravity,Urine 1.015 (1.010-1.025); Squamous Epithelial Cell,Urine Few per hpf (None-Few); Urobilinogen,Urine Normal (Normal)
[2020-07-20 11:08] LABS: Complement C3 155 mg/dL (87-200)
[2020-07-20 11:24] LABS: Estimated Average Glucose 157 mg/dl; Hemoglobin A1C 7.1 %
[2020-07-20 12:15] LABS: Protein/Creatinine Ratio,Urine 0.24 mg/mg (0.00-0.20)
[2020-07-20] MEDS ORDERED: Dextrose Gel 15 GM/37.5 ML TUBE PO PRN ×2 (12:57)
[2020-07-20] MEDS ORDERED: D5% in Water 1,000 ML IVC PRN (12:57)
[2020-07-20] MEDS ORDERED: *HR* Dextrose 50 % in Water (Vial) 50 ML VIAL IVP PRN (12:57)
[2020-07-20] MEDS: Insulin LISPRO 300 UNITS/3 ML VIAL SUBQ SCH ×3 (13:38→20:16)
[2020-07-20 14:19] LABS: Blood Urea Nitrogen > 130 mg/dL (8-23); Calcium 8.1 mg/dL (8.6-10.3); Carbon Dioxide 17 mEq/L (23-29); Chloride 107 mEq/L (98-107); Glucose 245 mg/dL (70-105); Potassium 5.5 mEq/L (3.5-5.1); Sodium 142 mEq/L (136-145); eGFR For African Americans 8 (> 60); eGFR For Non-African Americans 6 (> 60)
[2020-07-20] MEDS: Sodium Bicarbonate 150 MEQ in D5% in Water 1,000 ML IVC SCH (15:55)
[2020-07-20] MEDS: allopurinoL 100 MG TABLET PO SCH (15:55)
[2020-07-20] MEDS: *HR* Heparin 5,000 UNIT/ML VIAL SQ SCH (17:32)
[2020-07-20] MEDS: Azithromycin 500 MG in D5% in Water 250 ML IVPB SCH (17:33)
[2020-07-20] MEDS: cefTRIAXone 1,000 MG in Water for inj. (sterile) 10 ML IVP SCH (17:33)
[2020-07-21 01:37] LABS: Hematocrit 29.6 % (37.5-50.1); Mean Corpuscular HGB Conc 33.8 g/dL (31.6-35.5); Mean Corpuscular Volume 85.8 fL (83.0-100.0); Mean Platelet Volume 10.8 fL (9.4-12.4); Platelet Count 137 K/mcL (140-400); Red Blood Count 3.45 M/mcL (4.19-5.50); Red Cell Distribution Width 15.8 % (11.5-14.5)
[2020-07-21 01:38] LABS: White Blood Count 3.3 K/mcL (4.3-11.1)
[2020-07-21 02:03] LABS: Blood Urea Nitrogen > 130 mg/dL (8-23); Calcium 7.9 mg/dL (8.6-10.3); Carbon Dioxide 22 mEq/L (23-29); Chloride 110 mEq/L (98-107); Glucose 220 mg/dL (70-105); Potassium 4.7 mEq/L (3.5-5.1); Sodium 145 mEq/L (136-145); eGFR For African Americans 16 (> 60); eGFR For Non-African Americans 13 (> 60)
[2020-07-21] MEDS: Sodium Bicarbonate 150 MEQ in D5% in Water 1,000 ML IVC SCH ×3 (03:08→20:41)
[2020-07-21] MEDS: *HR* Heparin 5,000 UNIT/ML VIAL SQ SCH ×2 (05:40→17:50)
[2020-07-21] MEDS: SODIUM ZIRCONIUM CYCLOSILICATE 5 GM POWD.PACK PO SCH (08:28)
[2020-07-21] MEDS: cefTRIAXone 1,000 MG in Water for inj. (sterile) 10 ML IVP SCH (08:28)
[2020-07-21] MEDS: allopurinoL 100 MG TABLET PO SCH (08:29)
[2020-07-21] MEDS: Insulin LISPRO 300 UNITS/3 ML VIAL SUBQ SCH ×4 (08:32→20:35)
[2020-07-21] MEDS: Azithromycin 500 MG in D5% in Water 250 ML IVPB SCH (17:50)
[2020-07-22] MEDS: *HR* Heparin 5,000 UNIT/ML VIAL SQ SCH ×2 (04:02→21:50)
[2020-07-22 04:09] LABS: Magnesium 2.1 mg/dL (1.6-2.6); Phosphorous 3.8 mg/dL (2.7-4.5); Potassium 4.8 mEq/L (3.5-5.1); Uric Acid 16.3 mg/dL (2.3-7.6)
[2020-07-22] MEDS: Sodium Bicarbonate 150 MEQ in D5% in Water 1,000 ML IVC SCH (05:40)
[2020-07-22] MEDS: cefTRIAXone 1,000 MG in Water for inj. (sterile) 10 ML IVP SCH (09:03)
[2020-07-22] MEDS: allopurinoL 100 MG TABLET PO SCH (09:03)
[2020-07-22] MEDS: SODIUM ZIRCONIUM CYCLOSILICATE 5 GM POWD.PACK PO SCH (09:45)
[2020-07-22] MEDS: Insulin LISPRO 300 UNITS/3 ML VIAL SUBQ SCH ×4 (09:45→21:50)
[2020-07-22 14:55] LABS: Calcium 7.9 mg/dL (8.6-10.3); Potassium 4.9 mEq/L (3.5-5.1)
[2020-07-22] MEDS: Acetaminophen 325 MG TABLET PO PRN (16:38)
[2020-07-23 03:40] LABS: Calcium 8.1 mg/dL (8.6-10.3)
[2020-07-23] MEDS: *HR* Heparin 5,000 UNIT/ML VIAL SQ SCH ×3 (04:49→20:23)
[2020-07-23] MEDS: Acetaminophen 325 MG TABLET PO PRN (04:55)
[2020-07-23] MEDS ORDERED: D5% in Water 1,000 ML IVC SCH (08:00)
[2020-07-23] MEDS: Insulin LISPRO 300 UNITS/3 ML VIAL SUBQ SCH ×4 (09:17→20:23)
[2020-07-23 09:18] LABS: Serine Protease-3 Antibody 1 AU/mL (0-19)
[2020-07-23] MEDS: cefTRIAXone 1,000 MG in Water for inj. (sterile) 10 ML IVP SCH (09:21)
[2020-07-23] MEDS: allopurinoL 100 MG TABLET PO SCH (09:21)
[2020-07-23] MEDS: SODIUM ZIRCONIUM CYCLOSILICATE 5 GM POWD.PACK PO SCH (11:26)
[2020-07-23 12:11] LABS: Lambda Qnt Free Light Chains 1.46 mg/L (5.71-26.30)
[2020-07-23 13:08] LABS: Kappa Qnt Free Light Chains 5.29 mg/L (3.30-19.40)
[2020-07-24] MEDS ORDERED: *HR* LORazepam 2 MG/ML VIAL IVP ONE (02:36)
[2020-07-24 05:00] LABS: BUN/Creatinine Ratio 36 (6-26); Blood Urea Nitrogen 47 mg/dL (8-23); Carbon Dioxide 25 mEq/L (23-29); Chloride 110 mEq/L (98-107); Glucose 127 mg/dL (70-105); Osmolality,Calculated 314 (280-300); Potassium 4.9 mEq/L (3.5-5.1); Sodium 145 mEq/L (136-145); eGFR For African Americans > 60 (> 60); eGFR For Non-African Americans 56 (> 60)
[2020-07-24] MEDS: *HR* Heparin 5,000 UNIT/ML VIAL SQ SCH ×3 (05:56→21:52)
[2020-07-24 07:46] LABS: ANA IgG by ELISA NONE DETECTED (None Detected)
[2020-07-24] MEDS: Insulin LISPRO 300 UNITS/3 ML VIAL SUBQ SCH ×4 (08:24→20:19)
[2020-07-24] MEDS: allopurinoL 100 MG TABLET PO SCH (08:25)
[2020-07-25] MEDS: *HR* Heparin 5,000 UNIT/ML VIAL SQ SCH ×3 (05:55→22:32)
[2020-07-25 06:24] LABS: BUN/Creatinine Ratio 35 (6-26); Blood Urea Nitrogen 42 mg/dL (8-23); Calcium 8.7 mg/dL (8.6-10.3); Carbon Dioxide 26 mEq/L (23-29); Chloride 109 mEq/L (98-107); Glucose 116 mg/dL (70-105); Osmolality,Calculated 307 (280-300); Sodium 143 mEq/L (136-145); eGFR For African Americans > 60 (> 60); eGFR For Non-African Americans > 60 (> 60)
[2020-07-25 06:55] LABS: Basophils % 0.2 %; Hemoglobin 9.3 g/dL (12.9-16.9); Red Cell Distribution Width 14.7 % (11.5-14.5)
[2020-07-25 06:57] LABS: Hematocrit 29.4 % (37.5-50.1); Immature Granulocytes % 2.6 % (0-4); Immature Platelets 5.3 % (1.1-6.1); Lymphocytes # 0.7 K/mcL (0.6-4.6); Lymphocytes % 13.3 %; Mean Corpuscular HGB Conc 31.6 g/dL (31.6-35.5); Mean Corpuscular Hemoglobin 29.1 pg (28.0-33.3); Mean Corpuscular Volume 91.9 fL (83.0-100.0); Mean Platelet Volume 11.2 fL (9.4-12.4); Monocytes # 0.3 K/mcL (0.0-1.3); Neutrophils # 4.3 K/mcL (1.6-8.9); Platelet Count 90 K/mcL (140-400); Segmented Neutrophils % 77.9 %; White Blood Count 5.5 K/mcL (4.3-11.1)
[2020-07-25] MEDS: allopurinoL 100 MG TABLET PO SCH (09:06)
[2020-07-25] MEDS: Insulin LISPRO 300 UNITS/3 ML VIAL SUBQ SCH ×4 (11:10→22:33)
[2020-07-25 15:08] LABS: Alpha 2 Globulin (PEP) 1.05 g/dL (0.48-1.05); Beta Globulin (PEP) 0.55 g/dL (0.48-1.10)
[2020-07-26] MEDS: *HR* Heparin 5,000 UNIT/ML VIAL SQ SCH ×2 (05:34→12:37)
[2020-07-26 06:04] LABS: Basophils % 0.5 %; Hematocrit 32.9 % (37.5-50.1); Hemoglobin 10.7 g/dL (12.9-16.9); Lymphocytes % 12.4 %; Mean Corpuscular HGB Conc 32.5 g/dL (31.6-35.5); Mean Corpuscular Hemoglobin 29.3 pg (28.0-33.3); Mean Corpuscular Volume 90.1 fL (83.0-100.0); Mean Platelet Volume 11.6 fL (9.4-12.4); Monocytes # 0.5 K/mcL (0.0-1.3); Monocytes % 5.7 %; Neutrophils # 6.4 K/mcL (1.6-8.9); Nucleated Red Blood Cells 0.5 /100 WBC (0); Platelet Count 109 K/mcL (140-400); Red Blood Count 3.65 M/mcL (4.19-5.50); Red Cell Distribution Width 14.8 % (11.5-14.5); Segmented Neutrophils % 78.4 %; White Blood Count 8.2 K/mcL (4.3-11.1)
[2020-07-26 06:28] LABS: BUN/Creatinine Ratio 36 (6-26); Blood Urea Nitrogen 39 mg/dL (8-23); Calcium 8.9 mg/dL (8.6-10.3); Carbon Dioxide 22 mEq/L (23-29); Chloride 111 mEq/L (98-107); Glucose 108 mg/dL (70-105); Osmolality,Calculated 302 (280-300); Potassium 5.4 mEq/L (3.5-5.1); Sodium 141 mEq/L (136-145); eGFR For African Americans > 60 (> 60); eGFR For Non-African Americans > 60 (> 60)
[2020-07-26] MEDS: Insulin LISPRO 300 UNITS/3 ML VIAL SUBQ SCH ×3 (08:36→17:23)
[2020-07-26] MEDS: allopurinoL 100 MG TABLET PO SCH (08:36)
[2020-07-26] MEDS ORDERED: predniSONE 10 MG TABLET PO SCH (09:00)
[2020-07-26 10:00] LABS: Immunoglobulin G < 17 mg/dL (768-1632)
[2020-07-26 10:01] LABS: IFE Reflexed IFE Done; Immunoglobulin A < 2 mg/dL (68-408); Immunoglobulin M < 10 mg/dL (35-263)
[2020-07-26 16:53] VITALS: BP 118/66
== END 2020-07-26 23:00 | disposition home health service (06) | DRG 177 ==
LOC: 2NNU 16:49 → EMEROOARM 16:49 → OBSVTOIN 20:07 → SUATTDRO 20:07 → 2NNU 20:59 → 2NENU 07-21 22:02
PROVIDERS: ADMIT Family Medicine; ATTEND Family Medicine